=== PATIENT | male | born 1945 | race Caucasian/White ===

== ENCOUNTER 2017-05-26 05:08 | Inpatient (IN) | payer OTHER ==
[2017-04-28 13:10] VITALS: BMI 27.0
--- NOTE | 2017-04-28 13:41 | PAT Medication Instructions ---
Service Date Apr 28, 2017. Current Home Medication List Ibuprofen Tab (Advil), 600 MG PO PRN Simvastatin (Zocor), 20 MG PO QPM Medication Instructions For Your Scheduled Surgery - Check with surgeon for instructions: Ibuprofen Tab (Advil), 600 MG PO PRN - Take the following medications as scheduled the night before surgery: Simvastatin (Zocor), 20 MG PO QPM If you have any questions please call us at [phone] or [phone] or [phone]
--- NOTE | 2017-04-28 14:23 | DIAGNOSTIC IMAGING REPORT ---
CHEST PREADMISSION(PA/LAT) HISTORY:71 yearsMal[age]operative exam COMPARISON: Chest radiographs 03/02/2012 TECHNIQUE: Frontal and lateral views of the chest FINDINGS: Cardiomediastinal and hilar silhouettes are within normal limits. There is no pneumothorax, pleural effusion or focal airspace consolidation. Suggested nipple shadow of the left lower chest is seen. There are apparent sclerotic changes of the posterior aspect of the left 10th rib. Multilevel degenerative changes of the spine are seen. IMPRESSION: No acute cardiopulmonary process. The above report was generated using voice recognition software. It may contain grammatical, syntax or spelling errors. Electronically signed by: Jayme Cortez M.D. 04/28/2017 2:21 PM Dictated Date/Time: 04/28/2017 2:19 PM
[2017-04-28 14:33] LABS: BASO % 0.8 %; BASO ABS # 0.05 K/uL (0-0.2); COMPLETE YES; EOS % 3.1 %; HEMATOCRIT 44.7 % (42-52); IG% 0.2 %; LYMPH % 23.5 %; LYMPH ABS # 1.51 K/uL (1.2-3.4); MEAN CELL VOLUME 96.1 fL (80-100); MEAN CORPUSCULAR HEMOGLOBIN 31.8 pg (25-34); MEAN CORPUSCULAR HGB CONC 33.1 g/dl (32-36); MEAN PLATELET VOLUME 9.5 fL (7.4-10.4); MONO % 10.9 %; NEUT % 61.5 %; PLATELET COUNT 288 K/uL (130-400); RED BLOOD COUNT 4.65 M/uL (4.7-6.1); WHITE BLOOD COUNT 6.42 K/uL (4.8-10.8)
[2017-04-28 14:51] LABS: URINE APPEARANCE CLEAR (CLEAR); URINE BILIRUBIN NEG (NEG); URINE COLOR YELLOW; URINE NITRITE NEG (NEG); URINE PH 5.5 (4.5-7.5); URINE SPECIFIC GRAVITY 1.016 (1.000-1.030); UROBILINOGEN NEG (NEG)
[2017-04-28 14:58] LABS: CREATININE 0.89 mg/dl (0.60-1.40)
[2017-04-28 14:59] LABS: BUN/CREATININE RATIO 14.4 (10-20); CALCIUM 9.4 mg/dl (8.5-10.1); POTASSIUM 4.2 mmol/L (3.5-5.1)
[2017-04-28 15:04] LABS: MANUAL MICROSCOPIC REQUIRED? NO; REVIEW REQ? NO
[2017-05-26] VITALS (9 sets, daily range): BP systolic 107–182; BP diastolic 67–97; PULSE 62–76; TEMP 36.4–37.3; O2SAT 93–96; Ht 180.3 cm; Wt 88.5 kg
[~2017-05-26] VITALS: Ht 180.3 cm; Wt 88.5 kg
[~2017-05-26 05:08] MED LIST: IBUP-103 PO; SIMV20TA2 PO
[2017-05-26] MEDS ORDERED: CEFAZOLIN 2000 MG/60 ML D5W IV SCH (06:00)
[2017-05-26] MEDS ORDERED: LACTATED RINGER'S 1000ML 1,000 ML IV SCH (06:00)
[2017-05-26] MEDS ORDERED: FENTANYL CITRATE INJ 50 MCG/1 ML 2 ML VIAL ONE ×5 (06:33→10:31)
[2017-05-26] MEDS ORDERED: MIDAZOLAM HCL 1 MG/ML 2ML VIAL ONE (06:33)
[2017-05-26] MEDS ORDERED: SODIUM CHLORIDE 0.9% PF 50 ML VIAL ONE (06:53)
[2017-05-26] MEDS ORDERED: BUPIVACAINE/EPINEPHRINE 0.5% MPF 1:200,000 10 ML VIAL ONE (06:53)
[2017-05-26] MEDS ORDERED: BACITRACIN 50000 UNIT VIAL ONE (06:53)
--- NOTE | 2017-05-26 07:32 | History & Physical Bridge Note ---
H&P Re-Evaluation Bridge Note: I have examined the patient, reviewed the History & Physical and in the interval since the performance of the History & Physical I have noted the following changes of clinical significance: No changes noted
--- NOTE | 2017-05-26 07:34 | History and Physical ---
History & Physical Date May 26, 2017. Chief Complaint Back and leg pain History of Present Illness The patient is a 71 year old male with complaints of persistent back and leg pain Additional History Hepatic Disease: No Endocrine Disorder: No Kidney Disease: No Hypertension: No Heart Disease: No Bleeding Tendencies: No Infectious Diseases: No Allergies Coded Allergies: Penicillins (Verified Allergy, Unknown, SWELLING, RASH, HIVES, 05/26/17) PER PT HAS HAD PENICILLIN SINCE W/O ANY PROBLEMS Tetanus Toxoid (Verified Allergy, Unknown, SWELLING, RASH , HIVES, 05/26/17 ) Home Medications Scheduled Simvastatin (Zocor), 20 MG PO QPM Scheduled PRN Ibuprofen Tab (Advil), 600 MG PO PRN PRN for Pain Physical Examination Skin: warm/dry, no rash Eyes: normal inspection, EOMI, sclerae normal ENT: normal ENT inspection, pharynx normal Head: normocephalic, atraumatic Neck: supple, no adenopathy, trachea midline Respiratory/Chest: lungs clear, normal breath sounds, no respiratory distress Cardiovascular: regular rate, rhythm, no edema, no murmur Abdomen / GI: normal bowel sounds, non tender Back: normal inspection Extremities: normal inspection, normal range of motion Neurologic/Psych: no motor/sensory deficits, alert, normal reflexes, oriented x 3 Diagnosis Lumbar spinal stenosis Plan of Treatment Lumbar decompression with fusion L2 3 L3 4 L4 5
[2017-05-26] MEDS ORDERED: EpHEDrine SULFATE INJ 50 MG/ML AMP IV PRN (07:45)
[2017-05-26] MEDS ORDERED: FENTANYL CITRATE INJ 50 MCG/1 ML 2 ML VIAL IV PRN (07:45)
[2017-05-26] MEDS ORDERED: LABETALOL HCL IV 5 MG/ML 20ML IV PRN (07:45)
[2017-05-26] MEDS ORDERED: ONDANSETRON INJ 2 MG/ML 2 ML VIAL IV PRN ×2 (07:45→11:00)
[2017-05-26] MEDS ORDERED: HYDROmorphone INJ 1 MG/ML SYR IV PRN (07:45)
[2017-05-26] MEDS ORDERED: MEPERIDINE HCL 25 MG/ML CARP IV PRN (07:45)
[2017-05-26] MEDS ORDERED: ATROPINE SULFATE 0.1 MG/ML 5ML SYR IV PRN (07:45)
[2017-05-26] MEDS ORDERED: HYDROmorphone INJ 2 MG/ML SYR/VIAL ONE ×3 (08:01→10:45)
[2017-05-26] MEDS ORDERED: ROCURONIUM BROMIDE 10 MG/ML 5 ML VIAL ONE ×3 (08:54→10:46)
[2017-05-26] MEDS ORDERED: PROPOFOL IV EMULSION 10 MG/ML 20 ML VIAL IV ONE (08:54)
[2017-05-26] MEDS ORDERED: DEXAMETHASONE SOD INJ 4 MG/ML VIAL ONE (08:54)
[2017-05-26] MEDS ORDERED: LIDOCAINE HCL 2% 2 ML VIAL (20MG/ML) ONE (08:54)
[2017-05-26] MEDS ORDERED: PHENYLEPHRINE 100MCG/ML 5ML SYR ONE ×2 (10:30→10:46)
[2017-05-26] MEDS ORDERED: NEOSTIGMINE METHYLSULFATE 1 MG/ML 10ML VIAL ONE ×2 (10:30→10:46)
[2017-05-26] MEDS ORDERED: GLYCOPYRROLATE INJ 0.2 MG/ML VIAL ONE ×2 (10:30→10:46)
[2017-05-26] MEDS ORDERED: ONDANSETRON INJ 2 MG/ML 2 ML VIAL ONE (10:46)
[2017-05-26] MEDS ORDERED: KETOROLAC TROMETHAMINE 30 MG/ML VIAL ONE (10:46)
[2017-05-26] MEDS ORDERED: SODIUM CHLORIDE 0.9% 1000ML 1,000 ML IV SCH (10:53)
[2017-05-26] MEDS ORDERED: NALOXONE HCL 0.4 MG/1 ML VIAL/CARP IV PRN ×2 (11:00)
[2017-05-26] MEDS ORDERED: FAMOTIDINE 20 MG TAB PO PRN (11:00)
[2017-05-26] MEDS ORDERED: SOD PHOSPHATE/SOD BIPHOSPHATE ENEMA 132 ML BTL PR PRN (11:00)
[2017-05-26] MEDS ORDERED: LORAZEPAM 0.5 MG TAB PO PRN (11:00)
[2017-05-26] MEDS ORDERED: PROMETHAZINE HCL INJ 12.5 MG in SODIUM CHLORIDE 0.9% 50ML 50 ML IV PRN (11:00)
[2017-05-26] MEDS ORDERED: METOCLOPRAMIDE HCL INJ 5 MG/ML 2 ML VIAL IV PRN (11:00)
[2017-05-26] MEDS ORDERED: HYDROmorphone HCL 0.5MG/ML 50 ML CASSETTE IV PRN (11:00)
[2017-05-26] MEDS ORDERED: ALUMINUM/MAGNESIUM SUSP 30 ML UDC PO PRN (11:00)
[2017-05-26] MEDS ORDERED: ACETAMINOPHEN IV 100 ML IV PRN (11:00)
[2017-05-26] MEDS ORDERED: DO NOT ADMINISTER FLU VACCINE PRN ×3 (11:00)
[2017-05-26] MEDS ORDERED: DO NOT ADMINISTER PNEUMOCOCCAL VACCINE PRN ×2 (11:00)
[2017-05-26] MEDS ORDERED: MAGNESIUM HYDROXIDE SUSP 30 ML UDC PO PRN (11:00)
[2017-05-26] MEDS ORDERED: ACETAMINOPHEN 500 MG TAB PO PRN (11:00)
[2017-05-26] MEDS ORDERED: LORAZEPAM INJ 0.5 MG in SYRINGE 0 ML IV PRN (11:00)
[2017-05-26] MEDS ORDERED: hydrOXYzine HCL 25 MG TAB PO PRN (11:00)
[2017-05-26] MEDS ORDERED: BISACODYL 10 MG SUPP PR PRN (11:00)
--- NOTE | 2017-05-26 11:01 | [facility] Operative Report ---
Operative Report Operative Date May 26, 2017. Pre-Operative Diagnosis Lumbar spinal stenosis Post-Operative Diagnosis Lumbar spinal stenosis Procedure(s) Performed #1 lumbar decompression medial facetectomies L2-3 L3 4 L4 5. #2 posterior spinal fusion L2 3 L3 4 for 5. #3 placement of posterior segmental instrumentation L2 to L5. #4 interbody fusion L4 5. #5 placement peek cage 13 x 26 mm at L4 5. #6 placement of locally harvested morcellized autograft posterior gutters. #7 placement infuse collagen sponge about mask graft posterior gutters DBM in the interbody space. Surgeon Dr. Glenroy Gonzalez [employer] Boss Surgeon(s) none Estimated Blood Loss 420ml Findings Severe spinal stenosis Specimens None per surgeon Description of Procedure Patient was met with probably case discussed all questions are dressed with a point patient was taken back to Suite and after undergoing intubation placed in a prone position the [employer] table top Sanchez frame. All bony promises well- padded eyes inspected to ensure there is no external pressure placed upon pat this point lumbar spine prepped and draped nostril fashion. Sharp dissection significant pericardial down to and exposing the lamina and transverse processes of L2 3 for 5 bilaterally. From a caudal to cephalad fashion complete laminectomy of L43 into was performed addressing severe central lateral recess disease. Pedicle screws then placed into 345 bilaterally with assistance of fluoroscopy in the appropriate sized carey placed. Through a transforaminal port and left complete discectomy of L45 was performed and plate could subcortical bleeding bone and a 14 x 26 Guero peek cage filled with DBM tapped in position. The rods were then locked and final position bilaterally. Cross-link locked in position. Transverse processes of L2 3 4 5 burred to subcortical bleeding bone infuse collagen sponge mask graft locally harvested morcellized autograft placed in the posterior gutters. 15 round DELMER drain inserted. Incision then closed with 1 Vicryl in the fascia 2-0 Vicryl simultaneous the 4-0 Monocryl for Dena closure Steri-Strip sterile dressing placed patient we can taken to PACU stable condition. I attest to the content of the Intraoperative Record and any orders documented therein. Any exceptions are noted below.
[2017-05-26] MEDS ORDERED: HYDROmorphone HCL 0.5MG/ML 50 ML CASSETTE ONE (11:06)
--- NOTE | 2017-05-26 11:52 | Anesthesiology Progress Note ---
Anesthesia Post Op Note Date & Time May 26, 2017 at 11:52 Vital Signs Pain Intensity: 4 Vital Signs Past 12 Hours Date Time Temp Pulse Resp B/P (MAP) Pulse Ox O2 Delivery O2 Flow Rate FiO2 05/26/17 11:00 36.3 87 16 84/48 96 Nasal Cannula 4 05/26/17 05:42 36.5 71 20 182/96 95 Room Air Notes Mental Status: alert / awake / arousable, participated in evaluation Pt Amnestic to Procedure: Yes Nausea / Vomiting: adequately controlled Pain: adequately controlled Airway Patency, RR, SpO2: stable & adequate BP & HR: stable & adequate Hydration State: stable & adequate Neuraxial Anesthesia: was administered, sensory block is resolving Anesthetic Complications: no major complications apparent
--- NOTE | 2017-05-26 11:53 | DIAGNOSTIC IMAGING REPORT ---
LUMBAR SPINE 2 OR 3 VIEW CLINICAL HISTORY: L2-L5 DECOMPRESSION/FUSION/INTERBODY pain TECHNIQUE: Image intensifier COMPARISON STUDY: None FINDINGS: Image intensifier utilized for laminectomy and fusion of the lumbar spine IMPRESSION: Laminectomy and fusion of the lumbar spine. The above report was generated using voice recognition software. It may contain grammatical, syntax or spelling errors. Electronically signed by: Pieter Shaikh M.D. 05/26/2017 11:51 AM Dictated Date/Time: 05/26/2017 11:51 AM
[2017-05-26] MEDS ORDERED: FLOSEAL HEMOSTATIC MATRIX 10ML TOP ONE (13:52)
[2017-05-26] MEDS: LACTATED RINGER'S 1000ML 1,000 ML IV SCH ×3 (14:55→23:35)
[2017-05-26] MEDS: DEXAMETHASONE INJ 6 MG in SYRINGE 0 ML IV SCH (17:45)
[2017-05-26] MEDS: CLINDAMYCIN IV 600 MG in DEXTROSE 5% 50ML 50 ML IV SCH (17:59)
[2017-05-26] MEDS: SIMVASTATIN 20 MG TAB PO SCH (20:33)
[2017-05-26] MEDS: DOCUSATE SODIUM/SENNA 50/8.6MG TAB PO SCH (20:34)
[2017-05-27] VITALS (9 sets, daily range): BP systolic 124–166; BP diastolic 73–105; PULSE 60–105; TEMP 36.4–36.9; O2SAT 92–96
[2017-05-27] MEDS: CLINDAMYCIN IV 600 MG in DEXTROSE 5% 50ML 50 ML IV SCH (01:40)
[2017-05-27] MEDS: DEXAMETHASONE INJ 6 MG in SYRINGE 0 ML IV SCH ×2 (01:41→10:35)
[2017-05-27] MEDS ORDERED: NURSING VERBAL MED ORDER ONE (05:45)
[2017-05-27 05:49] LABS: COMPLETE YES; HEMATOCRIT 36.5 % (42-52); IG% 0.3 %; LYMPH % 5.5 %; LYMPH ABS # 0.63 K/uL (1.2-3.4); MEAN CELL VOLUME 96.6 fL (80-100); MEAN CORPUSCULAR HEMOGLOBIN 32.3 pg (25-34); MEAN CORPUSCULAR HGB CONC 33.4 g/dl (32-36); MEAN PLATELET VOLUME 9.8 fL (7.4-10.4); MONO % 4.3 %; NEUT % 89.9 %; PLATELET COUNT 237 K/uL (130-400); RED BLOOD COUNT 3.78 M/uL (4.7-6.1); WHITE BLOOD COUNT 11.49 K/uL (4.8-10.8)
[2017-05-27] MEDS ORDERED: HYDROmorphone INJ 0.5 MG/0.5 ML SYR IV PRN (06:00)
[2017-05-27] MEDS ORDERED: HYDROmorphone INJ 1 MG/ML SYR IV PRN (06:00)
[2017-05-27] MEDS ORDERED: DC PCA ONE (06:00)
[2017-05-27 06:18] LABS: BUN/CREATININE RATIO 15.8 (10-20); CALCIUM 8.5 mg/dl (8.5-10.1); CREATININE 0.9 mg/dl (0.60-1.40); POTASSIUM 4.2 mmol/L (3.5-5.1)
[2017-05-27] MEDS ORDERED: RXC5 PO (07:37)
--- NOTE | 2017-05-27 07:37 | Discharge Instructions ---
Discharge Instructions Date of Service May 27, 2017. Admission Reason for Admission: Lumbar Spinal Stenosis Discharge Discharge Diagnosis / Problem: stenosis Discharge Goals Goal(s): Improve function Activity Recommendations Activity Limitations: per Instructions/Follow-up section . Instructions / Follow-Up Instructions / Follow-Up ACTIVITY RECOMMENDATIONS: SELF CARE INSTRUCTIONS AFTER THORACIC/LUMBAR FUSIONS 1. You may walk to your tolerance. It is good exercise for your legs and back. Expect some back and intermittent leg aches and pains. 2. You may perform "counter-top" level activities (make a sandwich, tin with a project, etc.). 3. No bending or lifting of more than 10 pounds or back twisting of any nature (roll like a log when turning in bed). 4. You may ride in a car for 20-30 minutes at a time. No driving until after your first visit with your doctor. 5. Frequent changes of position and restricting sitting to 30 minutes at a time will help limit the amount of back spasms and stiffness you may experience. 6. You may discontinue the use of ambulatory aids (cane, crutches, etc.) once your strength and confidence allow. 7. You may clinic physician director the shower and let water strike your incision when you arrive home at least once daily. Do not take a tub bath, sit in a hot tub or go into a swimming pool until after your first recheck in the office. SPECIAL CARE INSTRUCTIONS: VERY IMPORTANT TO READ AND REVIEW A. Your surgical incision has been closed with a cosmetic suture under the skin that will dissolve in about 6 weeks. In 14 days, you can use a pair of clean scissors and cut the suture that is left outside of the skin at the ends of your incision. 1. The small skin tapes can be removed 7 days after surgery if they have not fallen off by that point. 2. You may keep the wound open to air as much as possible to promote healing after post-op day number 5 unless told otherwise by your doctor. 3. If you think the wound looks like it is becoming infected (redness or worsening drainage) and/or you are experiencing fever, chill or worsening back pain and muscle spasms, contact the office so that we may evaluate you as soon as possible. B. Complications are uncommon, but please contact us if you have any signs or symptoms of: 1. wound infection (fever higher than 102.5 degrees F, redness, separation of wound, drainage, or increasing pain from the incision) 2. blood clots in legs (pain, swelling, redness and warmth in legs) 3. urinary tract infection (fever higher than 102.5 degrees F, burning upon urination or increased frequency of urination) 4. nerve problems (inability to walk on your toes or heels, numbness, loss of bowel or bladder control) 5. any other symptoms that concern you C. Please call the office at if you have any concerns or questions about your operation or recovery. D. No smoking! Smoking drastically decreases the chance of a solid fusion. E. Do not take any anti-inflammatory medications (Indocin, Advil, Motrin, Aspirin, Naprosyn, etc.) as these may inhibit the chance of a solid fusion. Tylenol is okay to take for pain. MANAGING PAIN AFTER SPINAL SURGERY 1. Narcotic medication is intended for short-term use and will be provided for surgical pain. Surgical pain usually lasts for a period of 4-6 weeks. Narcotic medication includes Percocet, Vicodin, Darvocet, Tylenol #3 or Lortab. 2. Longer-term pain is more appropriately treated with non-narcotic medication such as Tylenol ES. 3. Muscle spasm is not appropriately treated with narcotics. Muscle relaxers such as Soma, Flexeril or Skelaxin can be used along with Tylenol ES. 4. Remember that we all live with some "aches and pains". This is not unusual or uncommon after an injury or as we get older. a. Back pain is expected and may include muscle spasms for 4 to 6 weeks after surgery. The pain should gradually improve. If the pain worsens for no apparent reason, please contact the office. b. Intermittent leg pain may also be experienced and should not be concerned about unless it worsens for no apparent reason. If so, please contact the office. 5. We will provide appropriate medication within the normal guidelines of their prescribed use. We will also be very cautious and aware of potential abuse and extended duration of patients' medication needs. a. Pain medications are for your comfort and to assist with sleep and rest so that the tissue can heal. They are not provided in order to return to normal activity and should not be used through the day. To do so or worsening pain at night can result from ongoing tissue damage and development of tolerance to the prescribed medicine. 6. Please allow 2-3 days to process refills. Prescriptions will not be mailed but must be picked up at the office. FOLLOW UP VISIT: Keep your scheduled follow-up appointment. Any questions, please call the office at . Current Hospital Diet Patient's current hospital diet: Regular Diet Discharge Diet Recommended Diet: Regular Diet Procedures Procedures Performed: #1 lumbar decompression medial facetectomies L2-3 L3 4 L4 5. #2 posterior spinal fusion L2 3 L3 4 for 5. #3 placement of posterior segmental instrumentation L2 to L5. #4 interbody fusion L4 5. #5 placement peek cage 13 x 26 mm at L4 5. #6 placement of locally harvested morcellized autograft posterior gutters. #7 placement infuse collagen sponge about mask graft posterior gutters DBM in the interbody space. Pending Studies Studies pending at discharge: no Medical Emergencies . Who to Call and When: Medical Emergencies: If at any time you feel your situation is an emergency, please call 911 immediately. . Non-Emergent Contact Non-Emergency issues call your: Primary Care Provider . "Provider Documentation" section prepared by Glenroy Gonzalez. . VTE Core Measure Inpt VTE Proph given/why not?: Arian Olmedo, SCD's
[2017-05-27] MEDS: OXYCODONE HCL IR 5 MG TAB (IMMEDIATE RELEASE) PO PRN ×4 (08:33→23:27)
--- NOTE | 2017-05-27 10:52 | Anesthesiology Progress Note ---
Anesthesia Post Op Note Date & Time May 27, 2017 at 10:51 Vital Signs Pain Intensity: 5.0 Vital Signs Past 12 Hours Date Time Temp Pulse Resp B/P (MAP) Pulse Ox O2 Delivery O2 Flow Rate FiO2 05/27/17 08:00 95 Room Air 05/27/17 07:41 95 Room Air 05/27/17 07:34 36.9 80 14 138/82 (100) 95 Room Air 05/27/17 03:52 73 157/85 (109) 05/27/17 03:00 166/105 (125) 05/27/17 02:58 36.5 105 16 160/104 (122) 96 Room Air 05/26/17 23:35 Room Air 05/26/17 23:07 36.7 76 16 115/74 (88) 94 Room Air Notes Mental Status: alert / awake / arousable, participated in evaluation Pt Amnestic to Procedure: Yes Nausea / Vomiting: adequately controlled Pain: adequately controlled Airway Patency, RR, SpO2: stable & adequate BP & HR: stable & adequate Hydration State: stable & adequate Anesthetic Complications: no major complications apparent
--- NOTE | 2017-05-27 13:24 | Progress Note ---
Progress Note Date of Service May 27, 2017. Progress Note Patient's postop day 1. Back pain is controlled. Leg pain markedly improved. Ambulating with physical therapy well. On exam as good strength testing appears comfortable. Assessment status post lumbar decompression fusion replant this time will continue physical therapy monitor is DELMER output and consider discharge home . May consider home health.
[2017-05-27] MEDS: DOCUSATE SODIUM/SENNA 50/8.6MG TAB PO SCH (20:55)
[2017-05-27] MEDS: SIMVASTATIN 20 MG TAB PO SCH (20:55)
[2017-05-28] MEDS: POLYETHYLENE (MIRALAX) 17 GM PACK PO SCH ×3 (05:52→18:26)
[2017-05-28] MEDS: OXYCODONE HCL IR 5 MG TAB (IMMEDIATE RELEASE) PO PRN ×4 (05:53→22:07)
[2017-05-28 06:42] VITALS: BP 125/75; PULSE 70; TEMP 36.6; O2SAT 94
[2017-05-28 13:00] VITALS: BP 123/74; PULSE 68; O2SAT 93
[2017-05-28] MEDS: KETOROLAC TROMETHAMINE 15 MG/ML VIAL IV. PRN ×2 (13:24→19:37)
[2017-05-28 15:28] VITALS: BP 97/60; PULSE 67; TEMP 36.9; O2SAT 97
--- NOTE | 2017-05-28 16:13 | Progress Note ---
Progress Note Date of Service May 28, 2017. Progress Note Patient is doing very well today. Back pain is controlled. Leg symptoms continue to be markedly improved. On exam he is comfortable has excellent strength testing. Assessment status post multilevel lumbar depression fusion replant this time we will continue to advance his bowel regimen and hopefully discharge home tomorrow afternoon.
[2017-05-28 17:13] VITALS: BP 106/67
[2017-05-28] MEDS: DOCUSATE SODIUM/SENNA 50/8.6MG TAB PO SCH (20:32)
[2017-05-28] MEDS: SIMVASTATIN 20 MG TAB PO SCH (20:32)
[2017-05-28 23:09] VITALS: BP 121/76; PULSE 66; TEMP 36.8; O2SAT 95
[2017-05-29] MEDS: POLYETHYLENE (MIRALAX) 17 GM PACK PO SCH ×3 (00:35→12:14)
[2017-05-29] MEDS: OXYCODONE HCL IR 5 MG TAB (IMMEDIATE RELEASE) PO PRN ×3 (03:03→19:49)
[2017-05-29] MEDS: KETOROLAC TROMETHAMINE 15 MG/ML VIAL IV. PRN (07:10)
[2017-05-29 07:43] VITALS: BP 102/64; PULSE 70; TEMP 37; O2SAT 96
[2017-05-29 08:12] VITALS: O2SAT 96
--- NOTE | 2017-05-29 08:16 | Progress Note ---
Progress Note Date of Service May 29, 2017. Progress Note Patient doing very nicely. Back pain control. Again leg pain markedly improved. Assessment status post multilevel lumbar decompression fusion replant this time continue therapy today maintain his drain throughout the day change this evening. Anticipate home tomorrow.
[2017-05-29] MEDS ORDERED: NURSING VERBAL MED ORDER ONE (15:30)
[2017-05-29 15:31] VITALS: BP 127/75; PULSE 68; TEMP 36.6; O2SAT 96
[2017-05-29] MEDS: DOCUSATE SODIUM/SENNA 50/8.6MG TAB PO SCH (20:27)
[2017-05-29] MEDS: SIMVASTATIN 20 MG TAB PO SCH (20:43)
[2017-05-29 22:55] VITALS: BP 125/73; PULSE 75; TEMP 37.2; O2SAT 96
[2017-05-30] MEDS: OXYCODONE HCL IR 5 MG TAB (IMMEDIATE RELEASE) PO PRN ×3 (03:00→11:11)
[2017-05-30 06:43] VITALS: BP 104/66; PULSE 96; TEMP 36.8; O2SAT 91
[2017-05-30 10:45] VITALS: BP 104/66; PULSE 96; TEMP 36.8; O2SAT 91
[2017-05-30 10:56] VITALS: TEMP 36.8
--- NOTE | 2017-05-30 13:30 | Discharge Summary ---
Orthopedic Discharge Summary Admission Date/Reason May 26, 2017 at 07:00 Lumbar Spinal Stenosis. Discharge Date/Disposition May 30, 2017 Home Diagnosis Principal Diagnosis: Lumbar spinal stenosis Admission Physical Exam As per Admitting History & Physical. Hospital Course Patient underwent lumbar decompression fusion tolerated this well as taken to the orthopedic floor postoperatively. Postoperative day 1 he was up in amatory leg symptoms markedly improved. He progressed nicely throughout the week. Bowels working nicely towards in the week. DELMER drain decreased improperly. Substernally discharge home. Discharge orders and instructions found on the chart for further review. Discharge Instructions Please refer to the electronic Patient Visit Report (Discharge Instructions) for additional information.
== END 2017-05-30 11:19 | disposition home or self-care (01) | DRG 460 ==
LOC: C.ACU 05:08 → C.3E 07:00 → ENRESERV 11:32
PROVIDERS: ADMIT Orthopaedic Surgery Orthopaedic Surgery of the Spine; ATTEND Orthopaedic Surgery Orthopaedic Surgery of the Spine
PROC: 0SG0071 Fusion of Lumbar Vertebral Joint with Autologous Tissue Substitute, Posterior Approach, Posterior Column, Open Approach (ICD-10-PCS; principal; 2017-05-26 07:45)
PROC: 0ST20ZZ Resection of Lumbar Vertebral Disc, Open Approach (ICD-10-PCS; principal; 2017-05-26 07:45)
PROC: 0SG00A1 (ICD-10-PCS; principal; 2017-05-26 07:45)
DX: M48.06 Spinal stenosis, lumbar region (principal); Z79.899 Other long term (current) drug therapy; Z88.0 Allergy status to penicillin; Z88.7 Allergy status to serum and vaccine

== ENCOUNTER 2020-03-24 05:31 | Inpatient (IN) ==
--- NOTE | 2020-03-20 15:18 | Anesthesiology Consultation ---
Date of Service March 20, 2020 Assessment & Plan (1) Encounter for pre-operative examination: COVID Status: As of 03/15 nurse assessment, patient denies travel to endemic area (but lives in [facility]), known exposure/sick contacts, symptoms, or testing for coronavirus. Chart Review Chart Review: Acceptable Risk for Surgery and Patient NOT seen in Pre Admission Testing History Surgery Operation Date: 03/24/20 10:25 Proposed Procedures p T12-L1, L4-L5 Decompression, T12-L5 Fusion, L1-L4 Hardware Removal, Spinal Cord Monitoring - Glenroy Gonzalez, DO Height/Weight Height: 5 ft 11 in Weight: 87.09 kg Allergies Allergy/AdvReac Type Severity Reaction Status Date / Time Penicillins Allergy Unknown SWELLING, Verified 03/15/20 10:47 RASH, HIVES tetanus toxoid, adsorbed Allergy Unknown SWELLING, Verified 03/15/20 10:47 RASH, HIVES Medications Home Medications Medication Instructions Recorded Confirmed Last Taken acetaminophen [Tylenol Extra 500 mg PO Q6H PRN 12/14/19 03/15/20 Unknown Strength] simvastatin 10 mg PO QPM 12/14/19 03/15/20 Unknown ibuprofen [Advil] 600 mg PO Q6H PRN 03/15/20 03/15/20 Unknown Past Medical History Medical History HTN (hypertension) low BP while on medication- discontinued/monitored closely by PCP/at home Hyperlipemia Neuropathy HANDS/FEET Osteoarthritis Spinal stenosis Past Family History Family History Grandmother Diabetes Uncle Diabetes Other No family history of adverse response to anesthesia Past Surgical History Surgical History History of carpal tunnel release of both wrists History of colonoscopy History of right hip replacement History of shoulder surgery RT X 3 History of spinal surgery History of tooth extraction Social History Smoking Status: Former smoker tobacco type: cigarettes Do You Dip or Chew Tobacco: No Smoking End Date: IN COLLEGE Hx Alcohol Use: Yes Alcohol type: beer alcohol intake frequency: a few times a month Hx Substance Use: No substance use type: does not use Testing Laboratory Results 03/01/20 WBC: 7.9 H/H: 15/45.5 PLATELETS: 346 SODIUM: 138 POTASSIUM: 4.6 CHLORIDE: 107 CO2: 24 BUN: 18 CREATININE: 1.0 GLUCOSE: 97 PT: 9.4 INR: 0.98 UA: neg Electrocardiogram Date: 12/16/19 Findings: + NSR @ (76bpm) Chest X-Ray Date: 12/16/19 Findings: + NAD
[2020-03-24] MEDS ORDERED: LR 15ML/HR IV SCH (06:00)
[2020-03-24] MEDS ORDERED: CEFAZOLIN 2000MG 2,000 MG/15 ML SYR IV SCH (06:00)
[2020-03-24] MEDS ORDERED: GABAPENTIN 300 MG CAP PO SCH (06:00)
[2020-03-24] MEDS ORDERED: CLINDAMYCIN 600 MG/54 ML BAG IV SCH (06:00)
[2020-03-24] MEDS ORDERED: HYDROmorphone INJ 1 MG/ML SYRINGE IV PRN ×2 (06:54→12:50)
[2020-03-24] MEDS ORDERED: LABETALOL HCL IV 5 MG/ML 20ML IV PRN (06:54)
[2020-03-24] MEDS ORDERED: PROMETHAZINE HCL 12.5 MG in SODIUM CHLORIDE 0.9% 50 ML IV PRN ×2 (06:54→12:50)
[2020-03-24] MEDS ORDERED: ONDANSETRON INJ 2 MG/ML 2 ML VIAL IV PRN ×2 (06:54→12:50)
[2020-03-24] MEDS ORDERED: ATROPINE SULFATE 0.1 MG/ML 10ML SYR IV PRN (06:54)
[2020-03-24] MEDS ORDERED: MIDAZOLAM HCL 1 MG/ML 2ML VIAL ONE (07:06)
[2020-03-24] MEDS ORDERED: HYDROmorphone INJ 2 MG/ML SYR/VIAL ONE (07:06)
[2020-03-24] MEDS ORDERED: fentaNYL citrate 100 MCG/2 ML VIAL ONE (07:06)
[2020-03-24] MEDS ORDERED: BUPIVACAINE/EPINEPHRINE 0.25% 1:200,000 30 ML VIAL ONE (07:09)
[2020-03-24] MEDS ORDERED: BACITRACIN INJ 50,000 UNIT VIAL ONE (07:09)
--- NOTE | 2020-03-24 07:21 | History & Physical Bridge Note ---
Date of Service March 24, 2020 History & Physical Bridge Note I have examined the patient, reviewed the History & Physical and in the interval since the performance of the History & Physical I have noted the following changes of clinical significance: no changes noted
--- NOTE | 2020-03-24 07:22 | History & Physical Report ---
Date of Service March 24, 2020 Assessment & Plan (1) Lumbar stenosis with neurogenic claudication: T12-L1, L4-L5 decompression, T12-L5 fusion, L1-L4 hardware removal. Present on Admission?: Yes History of Present Illness Chief Complaint: Back and leg pain Primary Care Provider: Hadley Elkins DO This is a 74-year-old male well-known to me the presents with worsening back and bilateral leg pain. After failing a course of nonoperative care is here for surgical intervention. Allergies Allergy/AdvReac Type Severity Reaction Status Date / Time Penicillins Allergy Unknown SWELLING, Verified 03/24/20 05:56 RASH, HIVES tetanus toxoid, adsorbed Allergy Unknown SWELLING, Verified 03/24/20 05:56 RASH, HIVES Home Medications Home Medications Medication Instructions Recorded Confirmed Type acetaminophen [Tylenol Extra 500 mg PO Q6H PRN 12/14/19 03/24/20 History Strength] simvastatin 10 mg PO QPM 12/14/19 03/24/20 History ibuprofen [Advil] 600 mg PO Q6H PRN 03/15/20 03/24/20 History Past Med/Surg History Medical History HTN (hypertension) low BP while on medication- discontinued/monitored closely by PCP/at home Hyperlipemia Neuropathy HANDS/FEET Osteoarthritis Spinal stenosis Surgical History History of carpal tunnel release of both wrists History of colonoscopy History of right hip replacement History of shoulder surgery RT X 3 History of spinal surgery History of tooth extraction Family History Grandmother Diabetes Uncle Diabetes Other No family history of adverse response to anesthesia Social History Preferred Language: Serbian Communication Ability: Effective Medical Technologist Microbiology Required: No Beliefs That Will Affect Care: None Current Living Situation: Spouse Other Information That Helps Us Care for You: No Feels Safe at Home: Yes Safety Concerns: Feels Safe At This Time Smoking Status: Former smoker Tobacco Type: cigarettes ; Do You Dip or Chew Tobacco: No ; Smoking End Date: IN COLLEGE ; Second Hand Exposure: No ; Hx Alcohol Use: Yes Alcohol type: beer Hx Substance Use: No Physical Exam Physical Exam: Patient is alert and oriented neurologically intact Heart is regular rate and rhythm Lungs clear to auscultation Results & Data Vital Signs (Past 12 Hours) Vital Signs Temp Pulse Resp BP Pulse Ox 03/24/20 06:02 37.1 C 94 H 18 172/92 H 94
[2020-03-24] MEDS ORDERED: ALBUMIN HUMAN 5% 12.5 GM/250 ML VIAL IV ONE (08:11)
[2020-03-24] MEDS ORDERED: PHENYLEPHRINE 100MCG/ML 5ML SYR ONE ×2 (08:17→10:03)
[2020-03-24] MEDS ORDERED: ONDANSETRON INJ 2 MG/ML 2 ML VIAL ONE (08:17)
[2020-03-24] MEDS ORDERED: ROCURONIUM BROMIDE 10 MG/ML 5 ML VIAL IV ONE ×9 (08:17→09:58)
[2020-03-24] MEDS ORDERED: DEXAMETHASONE SOD INJ 4 MG/ML VIAL ONE (08:17)
[2020-03-24] MEDS ORDERED: GLYCOPYRROLATE 0.2 MG/ML VIAL ONE (08:17)
[2020-03-24] MEDS ORDERED: NEOSTIGMINE METHYLSULFATE 5 MG/5 ML SYR ONE (08:17)
[2020-03-24] MEDS ORDERED: PROPOFOL IV EMULSION 10 MG/ML 20 ML VIAL IV ONE (08:17)
[2020-03-24] MEDS ORDERED: LIDOCAINE HCL 2% 2 ML VIAL/AMP(20MG/ML) INFIL ONE (08:17)
[2020-03-24] MEDS ORDERED: LARYING-O-JET KIT (LTA) ONE (11:05)
[2020-03-24] MEDS ORDERED: FLOSEAL HEMOSTATIC MATRIX 10ML TOP ONE (11:20)
--- NOTE | 2020-03-24 11:40 | Fluoroscopy Report ---
FL lumbar spine 2-3V CLINICAL HISTORY: T12-L5 DECOMPRESSION AND FUSION / HW REMOVAL L-L4 COMPARISON STUDY: None. FLUOROSCOPY TIME: 28 seconds. FINDINGS: 5 fluoroscopic spot images of the lumbar spine demonstrate posterior decompression and fusi on from T12 through S1 with pedicle screws and rods. The hardware appears intact. IMPRESSION: Posterior decompression and fusion from T12 through S1. ACT 112: Negative or not required by law. Electronically signed by: Fabiano Edmonds M.D. 03/24/2020 11:39 AM
--- NOTE | 2020-03-24 11:46 | Operative Report ---
Post Operative Report Pre & Post Diagnosis Operation Date: 03/24/20 07:45 Pre-Op Diagnosis: Lumbar Spinal Stenosis with Neurogenic Claudication Post-Op Diagnosis: Lumbar Spinal Stenosis with Neurogenic Claudication I identified the patient and participated in the time-out.: Yes Procedure Operation Date: 03/24/20 07:45 Actual Procedures #1 removal of posterior segmental instrumentation L2-L5. #2 exploration of fusion L2-L5. #3 lumbar decompression with bilateral medial facetectomies and foraminotomies T12-L1, L1-L2 and L5-S1. #4 posterior spinal fusion T11-S1. #5 placement posterior segmental instrumentation T12-S1. #6 interbody fusion L5-S1. #7 placement of peek cage 13 x 26 mm at L5-S1. #8 placement locally harvested morselized autograft in the posterior lateral gutters. #9 placement infuse collagen sponge, master graft in the posterior lateral gutters and ostial amp and interbody space. Surgeon Glenroy Gonzalez, Bank Appraiser Osvaldo Barnes Estimated Blood Loss 500 Findings Consistent with Post-Op Diagnosis Specimens None Indications This is a 74-year-old male the presents with above-mentioned diagnosis after failed extensive course of nonoperative care is here for surgical invention. Description of Procedure Patient was met with identified informed consent obtained. Patient was then taken to the operative suite underwent intubation placed in a prone position on the Alfredo table on top of the Sanchez frame. All bony prominences well-padded eyes inspected to ensure no external pressure placed upon them. This point the thoracolumbar spine was prepped and draped in a normal sterile fashion. Sharp dissection with the assistance of Bovie cautery was performed down to and exposing the lamina and transverse processes of T11 T12-L1 and instrumentation at L2 L3-L4-L5 bilaterally as well as the sacral ala. And then proceeded move the hardware from L2-L5 bilaterally. I explored the fusion mass. Appeared to be intact. Then performed a complete laminectomy of L5 including bilateral medial facetectomies and foraminotomies addressing severe spinal stenosis. I then proceeded to L1 and performed a complete laminectomy as well as a partial laminectomy of T12 including bilateral medial facetectomies and foraminotomies addressing all spinal stenosis. Pedicle screws were then placed in T12 L1-L2 L4-L5 and the S1 levels bilaterally with assistance of fluoroscopy and appropriately sized carey placed. By way of a trans-foraminal approach on the l eft complete discectomy of L5-S1 was performed endplates curetted to subcortical bleeding bone and a 13 x 26 mm peek cage filled with osteo-bone graft tapped in position. The rods were then locked into final position bilaterally. The transverse processes and lamina of T11-T12 L1-L2 L5 and the sacral ala were then burred to subcortical bleeding bone. Infuse collagen sponge master graft local autograft was then placed in the posterior lateral gutters. 15 round DELMER drain was inserted. The incision was then closed with 1 Vicryl in the fascia 2-0 Vicryl subcutaneously and 4 Monocryl for final skin closure. Steri-Strip sterile dressings placed. Patient waken taken PACU stable condition. Please note Osvaldo record was present for the beginning of the surgery and complex portions of the procedure. Lastly spinal cord monitoring was utilized that the procedure and no changes noted. I attest to the content of the Intraoperative Record and any orders documented therein. Any exceptions are noted below.
[2020-03-24] MEDS ORDERED: METOCLOPRAMIDE HCL INJ 5 MG/ML 2 ML VIAL IV PRN (12:50)
[2020-03-24] MEDS ORDERED: SOD PHOSPHATE/SOD BIPHOSPHATE ENEMA 132 ML BTL PR PRN (12:50)
[2020-03-24] MEDS ORDERED: NALOXONE HCL 0.4 MG/1 ML VIAL/CARP IV PRN (12:50)
[2020-03-24] MEDS ORDERED: ONDANSETRON 4 MG OD TAB PO PRN (12:50)
[2020-03-24] MEDS ORDERED: HYDROmorphone INJ 0.5 MG/0.5 ML SYR IV PRN (12:50)
[2020-03-24] MEDS ORDERED: FAMOTIDINE 20 MG TAB PO PRN (12:50)
[2020-03-24] MEDS ORDERED: LORazepam 0.5 MG TAB PO PRN (12:50)
[2020-03-24] MEDS ORDERED: ALUMINUM/MAGNESIUM SUSP 30 ML UDC PO PRN (12:50)
[2020-03-24] MEDS ORDERED: ACETAMINOPHEN 1,000 MG/100 ML VIAL IV PRN (12:50)
[2020-03-24] MEDS ORDERED: DO NOT ADMINISTER PNEUMOCOCCAL VACCINE PRN (12:50)
[2020-03-24] MEDS ORDERED: ACETAMINOPHEN 500 MG TAB PO PRN (12:50)
[2020-03-24] MEDS ORDERED: DO NOT ADMINISTER FLU VACCINE PRN (12:50)
[2020-03-24] MEDS ORDERED: MAGNESIUM HYDROXIDE SUSP 30 ML UDC PO PRN (12:50)
[2020-03-24] MEDS ORDERED: bisacodyL 10 MG SUPP PR PRN (12:50)
[2020-03-24] MEDS ORDERED: LORazepam 0.5 MG/1 ML VIAL IV PRN (12:50)
[2020-03-24] MEDS: SODIUM CHLORIDE 0.9% 1000ML 1,000 ML IV SCH ×2 (13:29→22:49)
--- NOTE | 2020-03-24 13:45 | Anesthesiology Progress Note ---
Date of Service March 24, 2020 Anesthesia Post Procedure Vital Signs Vital Signs: Temp Pulse Pulse Resp BP Pulse Ox 03/24/20 13:20 36.6 C 86 16 126/78 95 03/24/20 12:56 37 C 75 16 118/73 98 03/24/20 12:40 65 15 105/78 96 03/24/20 12:25 36.6 C 69 14 112/76 96 03/24/20 12:15 77 16 115/62 95 03/24/20 12:05 90 15 106/78 98 03/24/20 11:54 36.7 C 84 16 103/66 98 03/24/20 06:02 37.1 C 94 H 18 172/92 H 94 Pain Intensity Bilateral Back: Pain Intensity: 5 Transfer of Care Handoff Completed per policy Notes Mental Status: alert / awake / arousable Patient Amnestic to Procedure: Yes Nausea / Vomiting: adequately controlled Pain: adequately controlled Airway Patency, RR, SpO2: stable & adequate BP & HR: stable & adequate Hydration State: stable & adequate Anesthetic Complications: no major complications apparent
--- NOTE | 2020-03-24 14:04 | Hospitalist Consultation ---
Date of Consultation March 24, 2020 Assessment & Plan (1) S/P spinal surgery: (2) Lumbar stenosis with neurogenic claudication: This is a 74yo F with a PMH of HTN, HLD and lumbar stenosis with neurogenic claudication who is POD#0 s/p lumbar decompression T12-L1 and fusion L4-L5 by Dr. Gonzalez. -POD#0 s/p lumbar decompression T12-L1 and fusion L4-L5 by Dr. Gonzalez -Pt is doing well post-operatively -Per ortho for pain control, wound care, anticoagulation and activities -Monitor H&H (EBL: 500ml, DELMER output: 100ml to date), continue incentive spirometry, PT/OT when appropriate (3) HTN (hypertension): Not on home medications. Optimize pain control. Will add PRN antihypertensive if needed (4) Hyperlipemia: Continue statin PCP: [facility] Dispo: Per primary service Patient seen in collaboration with Dr. Melton. Please see addendum. Supervising Physician Co-Signing Physician Notes History and physical exam performed by me. Detailed history as documented by Anneliese Barnett PA-C Patient only reports mild pain at surgical site. Physical exam General: Well nourished, well hydrated, no acute distress Eyes: PERRL, conjunctivae normal, not pale, anicteric sclerae, EOM intact bilaterally ENMT: External ear and nose normal, oropharynx normal Neck: Normal visual inspection, no tracheal deviation, no swelling noted Respiratory: Normal respiratory effort, no respiratory distress, lungs clear to auscultation, no crackles and no wheezes Cardiovascular: Pulse is RRR. S1-2, no pedal edema Chest (Breasts): Chest: normal inspection of chest Gastrointestinal (Abdomen): Abdomen is not distended, soft, non-tender to palpation, no guarding, no palpable hepatosplenomegaly, normal bowel sounds Musculoskeletal: Dressing over lower back, Drain in situ with serosanguinous drainage Neurologic: Alert and oriented x 3, No focal weakness Psychiatric: Euthymic affect, no depressed affect -Lumbar stenosis with neurogenic claudication s/p T12-L1 decompression and L4-5 fusion today. Pain control per primary surgical team Check Hb tomorrow Continue home simvastatin for dyslipidemia Not on any antihypertensives. BP currently controlled Monitor BP for now. PT/OT Thank you for the consult. Feel free to contact the Hospitalist team anytime. History of Present Illness Reason for Consultation: Postop medical management Attending Physician: Glenroy Gonzalez DO History of Present Illness This is a 74yo F with a PMH of HTN, HLD and lumbar stenosis with neurogenic claudication who is POD#0 s/p lumbar decompression T12-L1 and fusion L4-L5 by Dr. Gonzalez. Patient is feeling well post-operatively. Has mild surgical site pain. Eating lunch now without issue. No nausea or vomiting. Denies any fever, chills, lightheadedness, headache, chest pain, shortness of breath, abdominal pain, dysuria, diarrhea or constipation. Follows with Dr. Elkins for primary care. Allergies Allergy/AdvReac Type Severity Reaction Status Date / Time Penicillins Allergy Unknown SWELLING, Verified 03/24/20 05:56 RASH, HIVES tetanus toxoid, adsorbed Allergy Unknown SWELLING, Verified 03/24/20 05:56 RASH, HIVES Home Medications Home Medications Medication Instructions Recorded Confirmed Type acetaminophen [Tylenol Extra 500 mg PO Q6H PRN 12/14/19 03/24/20 History Strength] simvastatin 10 mg PO QPM 12/14/19 03/24/20 History ibuprofen [Advil] 600 mg PO Q6H PRN 03/15/20 03/24/20 History Patient History Medical History HTN (hypertension) low BP while on medication- discontinued/monitored closely by PCP/at home Hyperlipemia Neuropathy HANDS/FEET Osteoarthritis Spinal stenosis Surgical History History of carpal tunnel release of both wrists History of colonoscopy History of right hip replacement History of shoulder surgery RT X 3 History of spinal surgery History of tooth extraction Family History Grandmother Diabetes Uncle Diabetes Other No family history of adverse response to anesthesia Social History Preferred Language: Latvian Communication Ability: Effective Hospice Manager Required: No Beliefs That Will Affect Care: None Current Living Situation: Spouse Other Information That Helps Us Care for You: No Feels Safe at Home: Yes Safety Concerns: Feels Safe At This Time Smoking Status: Former smoker Tobacco Type: cigarettes ; Do You Dip or Chew Tobacco: No ; Smoking End Date: IN COLLEGE ; Second Hand Exposure: No ; Hx Alcohol Use: Yes Alcohol type: beer Hx Substance Use: No Review of Systems Review of Systems: At least ten systems reviewed and negative except as noted in the HPI. Physical Exam Physical Exam: See Dr. Melton's addendum for physical exam Results & Data Results & Data ([facility]) Vital Signs (Past 12 Hours) Vital Signs Temp Pulse Pulse Resp BP Pulse Ox 03/24/20 13:56 36.5 C 76 16 143/76 H 98 03/24/20 13:20 36.6 C 86 16 126/78 95 03/24/20 12:56 37 C 75 16 118/73 98 03/24/20 12:40 65 15 105/78 96 03/24/20 12:25 36.6 C 69 14 112/76 96 03/24/20 12:15 77 16 115/62 95 03/24/20 12:05 90 15 106/78 98 03/24/20 11:54 36.7 C 84 16 103/66 98 03/24/20 06:02 37.1 C 94 H 18 172/92 H 94 Diagnostic Findings Lumbar spine XR: IMPRESSION: Posterior decompression and fusion from T12 through S1.
[2020-03-24] MEDS: OXYCODONE HCL IR 5 MG TAB (IMMEDIATE RELEASE) PO PRN ×2 (15:05→19:53)
[2020-03-24] MEDS: CLINDAMYCIN 600 MG in DEXTROSE 5% 50 ML IV SCH ×2 (15:46→22:50)
[2020-03-24] MEDS: SIMVASTATIN 10 MG TAB PO SCH (21:12)
[2020-03-24] MEDS: DOCUSATE SODIUM/SENNA 50/8.6MG TAB PO SCH (21:13)
[2020-03-25] MEDS: OXYCODONE HCL IR 5 MG TAB (IMMEDIATE RELEASE) PO PRN ×4 (02:43→16:15)
[2020-03-25] MEDS: POLYETHYLENE (MIRALAX) 17 GM PACK PO SCH ×4 (05:44→23:58)
[2020-03-25] MEDS: TRAMADOL HCL 50 MG TABLET PO PRN ×2 (05:47→20:59)
[2020-03-25 07:34] LABS: Basophils # (auto) 0.04 K/uL (0-0.2); Basophils % (auto) 0.4 %; Eosinophils # (auto) 0.03 K/uL (0-0.5); Eosinophils % (auto) 0.3 %; Hematocrit (blood only) 32.9 % (42-52); Hemoglobin 10.9 g/dL (14.0-18.0); Immature Granulocytes # (auto) 0.01 K/uL (0.00-0.02); Immature Granulocytes % (auto) 0.1 %; Lymphocytes # (auto) 1.24 K/uL (1.2-3.4); Lymphocytes % (auto) 13.2 %; Mean Corpuscular Hemoglobin 31.7 pg (25-34); Mean Corpuscular Hgb Conc 33.1 g/dL (32-36); Mean Corpuscular Volume 95.6 fL (80-100); Mean Platelet Volume 8.7 fL (7.4-10.4); Monocytes # (auto) 1.19 K/uL (0.11-0.59); Monocytes % (auto) 12.7 %; Neutrophils # (auto) 6.86 K/uL (1.4-6.5); Neutrophils % (auto) 73.3 %; Platelet Count 285 K/uL (130-400); RDW Coefficient of Variation 14.4 % (11.5-14.5); RDW Standard Deviation 49.7 fL (36.4-46.3); Red Blood Count 3.44 M/uL (4.7-6.1); White Blood Count 9.37 K/uL (4.8-10.8)
[2020-03-25 08:01] LABS: BUN Creatinine Ratio 12.1 (10-20); Calcium 8.1 mg/dl (8.5-10.1); Creatinine Clr Calc Pharmacy 78.7 ml/min; Est GFR (African American) 98.3; Est GFR (Non-African American) 84.8
--- NOTE | 2020-03-25 10:00 | Orthopedic Progress Note ---
Date of Service March 25, 2020 Assessment & Plan (1) Lumbar stenosis with neurogenic claudication: This time we will continue physical therapy monitor his DELMER output hopefully discharge home in the next few days. Present on Admission?: Yes Admission and Anticipated Discharge Date Admission Date: March 24, 2020 Subjective Back pain controlled leg pain improved. Physical Exam Physical Exam: Patient is good strength testing sitting in the chair at the bedside. Results & Data ([facility]) Vital Signs (Past 12 Hours) Vital Signs Temp Pulse Resp BP Pulse Ox 03/25/20 07:41 37.3 C 73 16 121/73 97 03/25/20 03:58 36.9 C 73 18 124/68 97 03/24/20 23:05 37 C 76 16 132/81 97
--- NOTE | 2020-03-25 10:37 | Hospitalist Progress Note ---
Date of Service March 25, 2020 Assessment & Plan (1) S/P spinal surgery: (2) Lumbar stenosis with neurogenic claudication: This is a 74yo F with a PMH of HTN, HLD and lumbar stenosis with neurogenic claudication who is s/p lumbar decompression T12-L1 and fusion L4-L5 by Dr. Gonzalez on 03/24/2020 -s/p lumbar decompression T12-L1 and fusion L4-L5 by Dr. Gonzalez on 03/24/2020 -Per ortho for pain control, wound care, anticoagulation and activities -PT/OT evaluations -sim awaiting to be removed -Hgb 10.9 on 03/25/2020 and presence of DELMER drain management as per orthopedics (3) HTN (hypertension): concern for hypertension on 03/24/2020 blood pressures seems stable on 03/25/2020 without needing anti-hypertensives (4) Hyperlipemia: -Continue simvastatin DVT prophylaxis: SCDs PCP: [facility] Admission and Anticipated Discharge Date Admission Date: March 24, 2020 Subjective sim present at time of exam. patient sitting up in chair watching TV. no acute distress. DELMER drain to the back with patient reporting less recent blood drainage. no abdomen pain. no chest pain. no shortness of breath. no dizziness. no headache. no nausea. no vomiting Review of Systems Review of Systems: All systems reviewed & are unremarkable except as noted in Subjective Physical Exam Constitutional: WD/WN, vitals as above Eyes: PERRL, conjunctivae normal, anicteric sclerae EOM intact bilaterally ENMT: external ear and nose normal, oropharynx normal Neck: normal visual inspection Respiratory: normal respiratory effort, lungs clear to auscultation Cardiovascular: Rate/Rhythm: regular rate and regular rhythm Gastrointestinal (Abdomen): normal bowel sounds, soft, nontender, no hepatosplenomegaly Musculoskeletal: Head/Neck/Chest: normocephalic and head atraumatic DELMER drain to the back Neurologic: PERRL, EOMI, accommodation nl, no face palsy, no dysarthria CN's II-XI intact bilaterally Psychiatric: A+Ox3, euthymic affect Genitourinary: sim present at time of exam Results & Data Results & Data ([facility]) Vital Signs (Past 12 Hours) Vital Signs Temp Pulse Resp BP Pulse Ox 03/25/20 07:41 37.3 C 73 16 121/73 97 03/25/20 03:58 36.9 C 73 18 124/68 97 03/24/20 23:05 37 C 76 16 132/81 97
[2020-03-25] MEDS: SIMVASTATIN 10 MG TAB PO SCH (20:58)
[2020-03-25] MEDS: DOCUSATE SODIUM/SENNA 50/8.6MG TAB PO SCH (20:58)
[2020-03-26] MEDS: TRAMADOL HCL 50 MG TABLET PO PRN ×3 (02:17→23:06)
[2020-03-26 04:39] LABS: Basophils # (auto) 0.03 K/uL (0-0.2); Basophils % (auto) 0.3 %; Eosinophils % (auto) 0.9 %; Hematocrit (blood only) 31.3 % (42-52); Hemoglobin 10.5 g/dL (14.0-18.0); Immature Granulocytes # (auto) 0.03 K/uL (0.00-0.02); Immature Granulocytes % (auto) 0.3 %; Lymphocytes # (auto) 1.03 K/uL (1.2-3.4); Lymphocytes % (auto) 9.1 %; Mean Corpuscular Hemoglobin 31.7 pg (25-34); Mean Corpuscular Hgb Conc 33.5 g/dL (32-36); Mean Corpuscular Volume 94.6 fL (80-100); Mean Platelet Volume 8.7 fL (7.4-10.4); Monocytes # (auto) 1.58 K/uL (0.11-0.59); Neutrophils # (auto) 8.49 K/uL (1.4-6.5); Neutrophils % (auto) 75.4 %; Platelet Count 282 K/uL (130-400); RDW Standard Deviation 48.4 fL (36.4-46.3); Red Blood Count 3.31 M/uL (4.7-6.1); White Blood Count 11.26 K/uL (4.8-10.8)
[2020-03-26] MEDS: POLYETHYLENE (MIRALAX) 17 GM PACK PO SCH ×3 (05:54→17:46)
[2020-03-26] MEDS: DEXAMETHASONE SOD PHOSPHATE 8 MG in SYRINGE 0 ML IV SCH (08:16)
--- NOTE | 2020-03-26 09:47 | Hospitalist Progress Note ---
Date of Service March 26, 2020 Assessment & Plan (1) S/P spinal surgery: (2) Lumbar stenosis with neurogenic claudication: Leukocytosis -This is a 74yo F with a PMH of HTN, HLD and lumbar stenosis with neurogenic claudication who is s/p lumbar decompression T12-L1 and fusion L4-L5 by Dr. Fausto babb on 03/24/2020 -s/p lumbar decompression T12-L1 and fusion L4-L5 by Dr. Gonzalez on 03/24/2020 -Per ortho for pain control, wound care, anticoagulation and activities -PT/OT evaluations -sim awaiting to be removed -Hgb 10.9 on 03/25/2020 and presence of DELMER drain management as per orthopedics -03/26/2020: patient seen and examined while sitting in chair. his WBC rising from 9,000 yesterday to 11,000. Patient did have a a recorded elevated temperature of around 100.2 F in 03/25/2020 afternoon, but this does not constitute a fever temperature. no other elevated body temperatures so far. patient comfortable and reports he made bowel movement since the surgery. he continues to have DELMER drain. at this time there does not appear need for antibiotics unless recurrent elevated body temperatures (leukocytosis may be reactive to non bacterial inflammation from his surgery) (3) HTN (hypertension): concern for hypertension on 03/24/2020 blood pressures seems stable as of 03/26/2020 without needing anti-hypertensives (4) Hyperlipemia: -Continue simvastatin DVT prophylaxis: SCDs PCP: [facility] Admission and Anticipated Discharge Date Admission Date: March 24, 2020 Subjective patient seen and examined while sitting in chair. his WBC rising from 9,000 yesterday to 11,000. Patient did have a a recorded elevated temperature of around 100.2 F in 03/25/2020 afternoon, but this does not constitute a fever temperature. no other elevated body temperatures so far. patient comfortable and reports he made bowel movement since the surgery. he continues to have DELMER drain. Review of Systems Review of Systems: All systems reviewed & are unremarkable except as noted in Subjective Physical Exam Constitutional: WD/WN, vitals as above Eyes: PERRL, conjunctivae normal, anicteric sclerae EOM intact bilaterally ENMT: external ear and nose normal, oropharynx normal Neck: normal visual inspection Respiratory: normal respiratory effort, lungs clear to auscultation Cardiovascular: Rate/Rhythm: regular rate and regular rhythm Gastrointestinal (Abdomen): normal bowel sounds, soft, nontender, no hepatosplenomegaly Musculoskeletal: Head/Neck/Chest: normocephalic and head atraumatic DELMER drain to the back Neurologic: PERRL, EOMI, accommodation nl, no face palsy, no dysarthria CN's II-XI intact bilaterally Psychiatric: A+Ox3, euthymic affect Results & Data Results & Data ([facility]) Vital Signs (Past 12 Hours) Vital Signs Temp Pulse Resp BP Pulse Ox 03/26/20 07:49 37.3 C 80 16 110/65 95 03/25/20 23:30 37.2 C 91 H 18 115/71 95
--- NOTE | 2020-03-26 10:38 | Orthopedic Progress Note ---
Date of Service March 26, 2020 Assessment & Plan (1) Lumbar stenosis with neurogenic claudication: At this time we will continue physical therapy monitor his DELMER output anticipate possible discharge home tomorrow. If the DELMER drain is still productive we may consider discharge home with home health. Present on Admission?: Yes Admission and Anticipated Discharge Date Admission Date: March 24, 2020 Subjective Back pain controlled leg symptoms improved. Physical Exam Physical Exam: Patient is in a chair at the bedside. Is good strength testing. Appears comfortable. Results & Data ([facility]) Vital Signs (Past 12 Hours) Vital Signs Temp Pulse Resp BP Pulse Ox 03/26/20 07:49 37.3 C 80 16 110/65 95 03/25/20 23:30 37.2 C 91 H 18 115/71 95
[2020-03-26] MEDS: OXYCODONE HCL IR 5 MG TAB (IMMEDIATE RELEASE) PO PRN (20:00)
[2020-03-26] MEDS: DOCUSATE SODIUM/SENNA 50/8.6MG TAB PO SCH (20:28)
[2020-03-26] MEDS: SIMVASTATIN 10 MG TAB PO SCH (20:28)
[2020-03-27 05:03] LABS: Basophils # (auto) 0.01 K/uL (0-0.2); Basophils % (auto) 0.1 %; Eosinophils # (auto) 0.04 K/uL (0-0.5); Eosinophils % (auto) 0.4 %; Hematocrit (blood only) 30.8 % (42-52); Hemoglobin 10.4 g/dL (14.0-18.0); Immature Granulocytes # (auto) 0.02 K/uL (0.00-0.02); Immature Granulocytes % (auto) 0.2 %; Lymphocytes # (auto) 1.07 K/uL (1.2-3.4); Lymphocytes % (auto) 10.4 %; Mean Corpuscular Hemoglobin 31.6 pg (25-34); Mean Corpuscular Hgb Conc 33.8 g/dL (32-36); Mean Corpuscular Volume 93.6 fL (80-100); Mean Platelet Volume 9.1 fL (7.4-10.4); Monocytes # (auto) 1.24 K/uL (0.11-0.59); Monocytes % (auto) 12.1 %; Neutrophils # (auto) 7.88 K/uL (1.4-6.5); Neutrophils % (auto) 76.8 %; Platelet Count 305 K/uL (130-400); RDW Coefficient of Variation 13.7 % (11.5-14.5); RDW Standard Deviation 46.7 fL (36.4-46.3); Red Blood Count 3.29 M/uL (4.7-6.1); White Blood Count 10.26 K/uL (4.8-10.8)
--- NOTE | 2020-03-27 07:44 | Hospitalist Progress Note ---
Date of Service March 27, 2020 Assessment & Plan (1) S/P spinal surgery: (2) Lumbar stenosis with neurogenic claudication: Leukocytosis -This is a 74yo F with a PMH of HTN, HLD and lumbar stenosis with neurogenic claudication who is s/p lumbar decompression T12-L1 and fusion L4-L5 by Dr. Fausto babb on 03/24/2020 -s/p lumbar decompression T12-L1 and fusion L4-L5 by Dr. Gonzalez on 03/24/2020 -Per ortho for pain control, wound care, anticoagulation and activities -PT/OT evaluations -sim awaiting to be removed -Hgb 10.9 on 03/25/2020 and presence of DELMER drain management as per orthopedics -03/26/2020: patient seen and examined while sitting in chair. his WBC rising from 9,000 yesterday to 11,000. Patient did have a a recorded elevated temperature of around 100.2 F in 03/25/2020 afternoon, but this does not constitute a fever temperature. no other elevated body temperatures so far. patient comfortable and reports he made bowel movement since the surgery. he continues to have DELMER drain. at this time there does not appear need for antibiotics unless recurrent elevated body temperatures (leukocytosis may be reactive to non bacterial inflammation from his surgery) -03/27/2020: WBC downtrending, no febrile temperature recorded. Patient feeling well. continues to have DELMER drain. Hgb remains above 10. patient awaiting to see orthopedic doctor today. patient hoping he can be discharge today. hospitalist medicine defers management of DELMER drain and discharge disposition as per orthopedics (3) HTN (hypertension): concern for hypertension on 03/24/2020 blood pressures seems stable as of 03/26/2020 without needing anti-hypertensives in general blood pressures are well, patient not on anti-hypertensives at home, any episodic episode of blood pressure above 140/90 appears relatively transient and in context of patient with recent surgery. hospitalist will not start long standing blood pressure medications and advised to patient further blood pressure evaluations with outpatient primary care doctor upon orthopedics discharge (4) Hyperlipemia: -Continue simvastatin DVT prophylaxis: SCDs [facility] Admission and Anticipated Discharge Date Admission Date: March 24, 2020 Subjective WBC downtrending, no febrile temperature recorded. Patient feeling well. continues to have DELMER drain. Hgb remains above 10. patient awaiting to see orthopedic doctor today. patient hoping he can be discharge today. hospitalist medicine defers management of DELMER drain and discharge disposition as per orthopedics in general blood pressures are well, patient not on anti-hypertensives at home, any episodic episode of blood pressure above 140/90 appears relatively transient and in context of patient with recent surgery. hospitalist will not start long standing blood pressure medications and advised to patient further blood pressure evaluations with outpatient primary care doctor upon orthopedics discharge no chest pain, no shortness of breath, breathing on room air. no distress. denies acute pain. no vomiting, no nausea, no dizziness, no headache Review of Systems Review of Systems: All systems reviewed & are unremarkable except as noted in Subjective Physical Exam Constitutional: WD/WN, vitals as above Eyes: PERRL, conjunctivae normal, anicteric sclerae EOM intact bilaterally ENMT: external ear and nose normal, oropharynx normal Neck: normal visual inspection Respiratory: normal respiratory effort, lungs clear to auscultation Cardiovascular: Rate/Rhythm: regular rate and regular rhythm Gastrointestinal (Abdomen): normal bowel sounds, soft, nontender, no hepatosplenomegaly Musculoskeletal: Head/Neck/Chest: normocephalic and head atraumatic DELMER drain to the back Neurologic: PERRL, EOMI, accommodation nl, no face palsy, no dysarthria CN's II-XI intact bilaterally Psychiatric: A+Ox3, euthymic affect Results & Data Results & Data ([facility]) Vital Signs (Past 12 Hours) Vital Signs Temp Pulse Resp BP Pulse Ox 03/26/20 22:55 36.9 C 87 14 153/86 H 97
[2020-03-27] MEDS: OXYCODONE HCL IR 5 MG TAB (IMMEDIATE RELEASE) PO PRN ×3 (07:46→22:41)
[2020-03-27] MEDS: DEXAMETHASONE SOD PHOSPHATE 8 MG in SYRINGE 0 ML IV SCH (08:39)
--- NOTE | 2020-03-27 10:26 | Orthopedic Progress Note ---
Date of Service March 27, 2020 Assessment & Plan (1) Lumbar stenosis with neurogenic claudication: This time we will continue physical therapy monitor his DELMER output. We will continue advance his bowel regiment as he has not had a BM to date. Hopefully discharge home tomorrow. Present on Admission?: Yes Admission and Anticipated Discharge Date Admission Date: March 24, 2020 Subjective Patient's back pain is improving. Leg pain continues to improve. Physical Exam Physical Exam: On exam patient is in a chair at the bedside is good strength testing appears comfortable. Results & Data ([facility]) Vital Signs (Past 12 Hours) Vital Signs Temp Pulse Resp BP Pulse Ox 03/27/20 07:35 36.9 C 81 16 127/80 96 03/26/20 22:55 36.9 C 87 14 153/86 H 97
[2020-03-27] MEDS: SIMVASTATIN 10 MG TAB PO SCH (20:41)
[2020-03-27] MEDS: DOCUSATE SODIUM/SENNA 50/8.6MG TAB PO SCH (20:41)
--- NOTE | 2020-03-28 08:19 | Discharge Summary ---
Date of Service March 28, 2020 Admission HPI Per Admitting Provider This is a 74-year-old male well-known to me the presents with worsening back and bilateral leg pain. After failing a course of nonoperative care is here for surgical intervention. Principal Diagnosis Lumbar spinal stenosis with neurogenic claudication Discharge Data Allergies Allergy/AdvReac Type Severity Reaction Status Date / Time Penicillins Allergy Unknown SWELLING, Verified 03/24/20 05:56 RASH, HIVES tetanus toxoid, adsorbed Allergy Unknown SWELLING, Verified 03/24/20 05:56 RASH, HIVES Consultations 03/24/20 12:50 Consult Case Management - Discharge Planning Routine Consult Hospitalist Routine Procedures Performed Operation Date: 03/24/20 07:45 Actual Procedures p T12-L1, L4-L5 Decompression, T12-L5 Fusion, L5-S1 Interbody Insertion, Spinal Cord Monitoring(Not Applicable) - Glenroy Gonzalez DO s L1-L4 Hardware Removal,(Not Applicable) - Glenroy Gonzalze DO Ordered Studies 03/24/20 07:45 FL fluoroscopy <1hr Routine FL lumbar spine 2-3V Routine Hospital Course (1) Lumbar stenosis with neurogenic claudication: Patient went lumbar decompression fusion tolerated this well was taken to orthopedic for postoperative. Postop day 1 he was up and ambulating progressed throughout his hospital course DELMER drain decreasing appropriately. Pain improving probably. Excellent strength testing on his last day and subsequently discharged home. Discharge orders and instructions from the chart for further review. Total Time Total Time Spent Total Time Spent (In Minutes): 20 minutes Discharge Plan Discharge Items Patient Disposition: Home - Self-Care Reason For Visit: LUMBAR SPINAL STENOSIS W/NEUROGENIC CLAUDICATION Discharge Diagnosis: ACTIVITY RECOMMENDATIONS: SELF CARE INSTRUCTIONS AFTER THORACIC/LUMBAR FUSIONS 1. You may walk to your tolerance. It is good exercise for your legs and back. Expect some back and intermittent leg aches and pains. 2. You may perform "counter-top" level activities (make a sandwich, tin with a project, etc.). 3. No bending or lifting of more than 10 pounds or back twisting of any nature (roll like a log when turning in bed). 4. You may ride in a car for 20-30 minutes at a time. No driving until after your first visit with your doctor. 5. Frequent changes of position and restricting sitting to 30 minutes at a time will help limit the amount of back spasms and stiffness you may experience. 6. You may discontinue the use of ambulatory aids (cane, crutches, etc.) once your strength and confidence allow. 7. You may mint machine operator the shower and let water strike your incision when you arrive home at least once daily. Do not take a tub bath, sit in a hot tub or go into a swimming pool until after your first recheck in the office. SPECIAL CARE INSTRUCTIONS: VERY IMPORTANT TO READ AND REVIEW A. Your surgical incision has been closed with a cosmetic suture under the skin that will dissolve in about 6 weeks. In 14 days, you can use a pair of clean scissors and cut the suture that is left outside of the skin at the ends of your incision. 1. The small skin tapes can be removed 7 days after surgery if they have not fallen off by that point. 2. You may keep the wound open to air as much as possible to promote healing after post-op day number 5 unless told otherwise by your doctor. 3. If you think the wound looks like it is becoming infected (redness or worsening drainage) and/or you are experiencing fever, chill or worsening back pain and muscle spasms, contact the office so that we may evaluate you as soon as possible. B. Complications are uncommon, but please contact us if you have any signs or symptoms of: 1. wound infection (fever higher than 102.5 degrees F, redness, separation of wound, drainage, or increasing pain from the incision) 2. blood clots in legs (pain, swelling, redness and warmth in legs) 3. urinary tract infection (fever higher than 102.5 degrees F, burning upon urination or increased frequency of urination) 4. nerve problems (inability to walk on your toes or heels, numbness, loss of bowel or bladder control) 5. any other symptoms that concern you C. Please call the office at if you have any concerns or questions about your operation or recovery. D. No smoking! Smoking drastically decreases the chance of a solid fusion. E. Do not take any anti-inflammatory medications (Indocin, Advil, Motrin, Aspirin, Naprosyn, etc.) as these may inhibit the chance of a solid fusion. Tylenol is okay to take for pain. MANAGING PAIN AFTER SPINAL SURGERY 1. Narcotic medication is intended for short-term use and will be provided for surgical pain. Surgical pain usually lasts for a period of 4-6 weeks. Narcotic medication includes Percocet, Vicodin, Darvocet, Tylenol #3 or Lortab. 2. Longer-term pain is more appropriately treated with non-narcotic medication such as Tylenol ES. 3. Muscle spasm is not appropriately treated with narcotics. Muscle relaxers such as Soma, Flexeril or Skelaxin can be used along with Tylenol ES. 4. Remember that we all live with some "aches and pains". This is not unusual or uncommon after an injury or as we get older. a. Back pain is expected and may include muscle spasms for 4 to 6 weeks after surgery. The pain should gradually improve. If the pain worsens for no apparent reason, please contact the office. b. Intermittent leg pain may also be experienced and should not be concerned about unless it worsens for no apparent reason. If so, please contact the office. 5. We will provide appropriate medication within the normal guidelines of their prescribed use. We will also be very cautious and aware of potential abuse and extended duration of patients' medication needs. a. Pain medications are for your comfort and to assist with sleep and rest so that the tissue can heal. They are not provided in order to return to normal activity and should not be used through the day. To do so or worsening pain at night can result from ongoing tissue damage and development of tolerance to the prescribed medicine. 6. Please allow 2-3 days to process refills. Prescriptions will not be mailed but must be picked up at the office. FOLLOW UP VISIT: Keep your scheduled follow-up appointment. Any questions, please call the office at . Activity: As commented below Non-emergency contact: Primary Care Provider Call non-emergency contact if: you have any medication questions Follow-up/Referrals: Hadley Elkins DO [Primary Care Provider] - Diet: Regular Addtl Attending Provider Instructions: ACTIVITY RECOMMENDATIONS: SELF CARE INSTRUCTIONS AFTER THORACIC/LUMBAR FUSIONS 1. You may walk to your tolerance. It is good exercise for your legs and back. Expect some back and intermittent leg aches and pains. 2. You may perform "counter-top" level activities (make a sandwich, tin with a project, etc.). 3. No bending or lifting of more than 10 pounds or back twisting of any nature (roll like a log when turning in bed). 4. You may ride in a car for 20-30 minutes at a time. No driving until after your first visit with your doctor. 5. Frequent changes of position and restricting sitting to 30 minutes at a time will help limit the amount of back spasms and stiffness you may experience. 6. You may discontinue the use of ambulatory aids (cane, crutches, etc.) once your strength and confidence allow. 7. You may mint machine operator the shower and let water strike your incision when you arrive home at least once daily. Do not take a tub bath, sit in a hot tub or go into a swimming pool until after your first recheck in the office. SPECIAL CARE INSTRUCTIONS: VERY IMPORTANT TO READ AND REVIEW A. Your surgical incision has been closed with a cosmetic suture under the skin that will dissolve in about 6 weeks. In 14 days, you can use a pair of clean scissors and cut the suture that is left outside of the skin at the ends of your incision. 1. The small skin tapes can be removed 7 days after surgery if they have not fallen off by that point. 2. You may keep the wound open to air as much as possible to promote healing after post-op day number 5 unless told otherwise by your doctor. 3. If you think the wound looks like it is becoming infected (redness or worsening drainage) and/or you are experiencing fever, chill or worsening back pain and muscle spasms, contact the office so that we may evaluate you as soon as possible. B. Complications are uncommon, but please contact us if you have any signs or symptoms of: 1. wound infection (fever higher than 102.5 degrees F, redness, separation of wound, drainage, or increasing pain from the incision) 2. blood clots in legs (pain, swelling, redness and warmth in legs) 3. urinary tract infection (fever higher than 102.5 degrees F, burning upon urination or increased frequency of urination) 4. nerve problems (inability to walk on your toes or heels, numbness, loss of bowel or bladder control) 5. any other symptoms that concern you C. Please call the office at if you have any concerns or questions about your operation or recovery. D. No smoking! Smoking drastically decreases the chance of a solid fusion. E. Do not take any anti-inflammatory medications (Indocin, Advil, Motrin, Aspirin, Naprosyn, etc.) as these may inhibit the chance of a solid fusion. Tylenol is okay to take for pain. MANAGING PAIN AFTER SPINAL SURGERY 1. Narcotic medication is intended for short-term use and will be provided for surgical pain. Surgical pain usually lasts for a period of 4-6 weeks. Narcotic medication includes Percocet, Vicodin, Darvocet, Tylenol #3 or Lortab. 2. Longer-term pain is more appropriately treated with non-narcotic medication such as Tylenol ES. 3. Muscle spasm is not appropriately treated with narcotics. Muscle relaxers such as Soma, Flexeril or Skelaxin can be used along with Tylenol ES. 4. Remember that we all live with some "aches and pains". This is not unusual or uncommon after an injury or as we get older. a. Back pain is expected and may include muscle spasms for 4 to 6 weeks after surgery. The pain should gradually improve. If the pain worsens for no apparent reason, please contact the office. b. Intermittent leg pain may also be experienced and should not be concerned about unless it worsens for no apparent reason. If so, please contact the office. 5. We will provide appropriate medication within the normal guidelines of their prescribed use. We will also be very cautious and aware of potential abuse and extended duration of patients' medication needs. a. Pain medications are for your comfort and to assist with sleep and rest so that the tissue can heal. They are not provided in order to return to normal activity and should not be used through the day. To do so or worsening pain at night can result from ongoing tissue damage and development of tolerance to the prescribed medicine. 6. Please allow 2-3 days to process refills. Prescriptions will not be mailed but must be picked up at the office. FOLLOW UP VISIT: Keep your scheduled follow-up appointment. Any questions, please call the office at . Pending Studies at Discharge: No Stand-Alone Forms: My M2G, Smoking Cessation Medications and DC Order Prescriptions: New tramadol 50 mg tablet 50 mg PO Q6H PRN (Reason: pain, moderate) Qty: 30 RF: 0 oxycodone 5 mg tablet 5 mg PO Q6H PRN (Reason: pain, severe) Qty: 20 RF: 0 Continued simvastatin 10 mg Tablet 10 mg PO QPM RF: 0 acetaminophen [Tylenol Extra Strength] 500 mg Tablet 500 mg PO Q6H PRN (Reason: Pain) RF: 0 Discontinued ibuprofen [Advil] 200 mg Tablet 600 mg PO Q6H PRN (Reason: Pain) RF: 0 Discharge Orders: Discharge Order (Routine); Ordered 03/28/20 Ordered By: Glenroy Gonzalez Admission Data Admit Date/Time: 03/24/20 12:08 Attending Provider: Glenroy Gonzalez Admit Provider: Glenroy Gonzalez Primary Care Provider: Hadley Elkins Other Providers: Blayne Salvador
--- NOTE | 2020-03-28 08:20 | Hospitalist Progress Note ---
Date of Service March 28, 2020 Assessment & Plan (1) S/P spinal surgery: (2) Lumbar stenosis with neurogenic claudication: Leukocytosis -This is a 74yo F with a PMH of HTN, HLD and lumbar stenosis with neurogenic claudication who is s/p lumbar decompression T12-L1 and fusion L4-L5 by Dr. Fausto babb on 03/24/2020 -s/p lumbar decompression T12-L1 and fusion L4-L5 by Dr. Gonzalez on 03/24/2020 -Per ortho for pain control, wound care, anticoagulation and activities -PT/OT evaluations -sim awaiting to be removed -Hgb 10.9 on 03/25/2020 and presence of DELMER drain management as per orthopedics -03/26/2020: patient seen and examined while sitting in chair. his WBC rising from 9,000 yesterday to 11,000. Patient did have a a recorded elevated temperature of around 100.2 F in 03/25/2020 afternoon, but this does not constitute a fever temperature. no other elevated body temperatures so far. patient comfortable and reports he made bowel movement since the surgery. he continues to have DELMER drain. at this time there does not appear need for antibiotics unless recurrent elevated body temperatures (leukocytosis may be reactive to non bacterial inflammation from his surgery) -03/27/2020: WBC downtrending, no febrile temperature recorded. Patient feeling well. continues to have DELMER drain. Hgb remains above 10. -03/28/2020: No acute events overnight. Dr. Gonzalez planning to discharge patient on 03/28/2020 after DELMER drain is taken out (3) HTN (hypertension): -hypertensive episodes concern for hypertension on 03/24/2020 blood pressures seems stable as of 03/26/2020 without needing anti-hypertensives in general blood pressures are well, patient not on anti-hypertensives at home, any episodic episode of blood pressure above 140/90 appears relatively transient and in context of patient with recent surgery. hospitalist will not start long standing blood pressure medications and advised to patient further blood pressure evaluations with outpatient primary care doctor upon orthopedics discharge . Dr. Gonzalez planning to discharge patient on 03/28/2020 and I re inforced the counseling today on following up with primary care doctor after the hospital stay (4) Hyperlipemia: -Continue simvastatin PCP: [facility] Admission and Anticipated Discharge Date Admission Date: March 24, [address] Gonzalez planning to discharge patient on 03/28/2020 after DELMER drain to be removed systolic blood pressure of 155 which patient attributes to ambulation. no acute distress. no dizziness. no headache. no chest pain. no abdomen pain. no nausea. no vomiting Review of Systems Review of Systems: All systems reviewed & are unremarkable except as noted in Subjective Physical Exam Constitutional: WD/WN, vitals as above Eyes: PERRL, conjunctivae normal, anicteric sclerae EOM intact bilaterally ENMT: external ear and nose normal, oropharynx normal Neck: normal visual inspection Respiratory: normal respiratory effort, lungs clear to auscultation Cardiovascular: Rate/Rhythm: regular rate and regular rhythm Gastrointestinal (Abdomen): normal bowel sounds, soft, nontender, no hepatosplenomegaly Musculoskeletal: Head/Neck/Chest: normocephalic and head atraumatic has DELMER drain to the back Neurologic: PERRL, EOMI, accommodation nl, no face palsy, no dysarthria CN's II-XI intact bilaterally Psychiatric: A+Ox3, euthymic affect Results & Data Results & Data ([facility]) Vital Signs (Past 12 Hours) Vital Signs Temp Pulse Resp BP Pulse Ox 03/28/20 07:25 36.6 C 90 18 155/76 H 96 03/27/20 23:04 36.4 C L 73 16 136/77 98
[2020-03-28] MEDS: OXYCODONE HCL IR 5 MG TAB (IMMEDIATE RELEASE) PO PRN (08:26)
[2020-03-28] MEDS: DEXAMETHASONE SOD PHOSPHATE 8 MG in SYRINGE 0 ML IV SCH (08:27)
== END 2020-03-28 10:23 | disposition home or self-care (01) | DRG 455 ==
LOC: ASU 05:31 → 3E 12:08